=== PATIENT | male | born 1995 ===

== ENCOUNTER 2017-02-12 19:17 | Inpatient (IN) | payer OTHER ==
[~2017-02-12] VITALS: Ht 185.4 cm; Wt 74.0 kg
--- NOTE | 2017-02-12 19:47 | EMERGENCY ROOM VISIT NOTE ---
History Report prepared by Delfina: Joe Turpin Under the Supervision of: Dr. Joe Jason D.O. First contact with patient: 19:09 Stated Complaint: ANKLE FX History of Present Illness The patient is a 21 year old male who presents to the Emergency Room with complaints of a sudden right ankle injury occurring prior to arrival. He currently rates his discomfort as an 8/10 in severity. The patient states that he was playing soccer, and someone stepped on his ankle. He notes that he can feel a deformation. He denies any open fracture or bleeding. Source of History: patient Onset: prior to arrival Position: ankle (right) Symptom Intensity: 8/10 Timing: other (sudden) Review of Systems See HPI for pertinent positives & negatives. A total of 6 systems reviewed and were otherwise negative. Past Medical & Surgical Medical Problems: (1) No chronic problems Family History Patient reports no known family medical history. Social History Marital Status: single Housing Status: lives with roommate Occupation Status: [employer] student Current/Historical Medications No Active Prescriptions or Reported Meds Allergies Coded Allergies: No Known Allergies (Unverified , 02/12/17) Physical Exam Vital Signs Date Time Temp Pulse Resp B/P (MAP) Pulse Ox O2 Delivery O2 Flow Rate FiO2 02/12/17 19:25 37.1 64 18 126/80 100 Room Air 02/12/17 19:23 69 Physical Exam CONSTITUTIONAL/VITAL SIGNS: Reviewed / noted above. GENERAL: Non-toxic in appearance. INTEGUMENTARY: Warm, dry, and [place]. HEAD: Normocephalic. EYES: without scleral icterus or trauma. ENT/OROPHARYNX: clear and moist. LYMPHADENOPATHY/NECK: Is supple without lymphadenopathy or meningismus. RESPIRATORY: Lungs clear and equal. CARDIOVASCULAR: Regular rate and rhythm. GI/ABDOMEN: Soft and nontender. No organomegaly or pulsatile mass. No rebound or guarding. Normal bowel sounds. EXTREMITIES: Tenderness to palpation of the right mid-tibial region. Noted swelling in the area. Distally neurovascularly intact. Warm and well perfused. BACK: No CVA tenderness. NEUROLOGICAL: Intact without focal deficits. PSYCHIATRIC: normal affect. MUSCULOSKELETAL: Normally developed with good muscle tone. Medical Decision & Procedures ER Provider Diagnostic Interpretation: Radiology results as stated below per my review and radiologist interpretation: R TIBIA/FIBULA 2 VIEWS ROUTINE CLINICAL HISTORY: Right tibia and fibula fracture. COMPARISON: None FINDINGS: Note is made of an acute moderately displaced transverse fracture through the mid to distal shaft of the right tibia at the junction of the middle and distal thirds. Fracture is displaced 1.2 cm. There is also an acute mildly displaced comminuted diaphyseal fracture of the adjacent fibula. Alignment of the right knee and ankle is anatomic. Soft tissue swelling is present. IMPRESSION: 1. Acute moderately displaced transverse diaphyseal fracture of the right tibia, as detailed above. 2. Acute mildly displaced comminuted diaphyseal fracture of the right fibula. Electronically signed by: Devyn Monge M.D. 02/12/2017 8:33 PM Dictated Date/Time: 02/12/2017 8:30 PM Medications Administered Medications (Trade) Dose Ordered Sig/Lauri Route Start Time Stop Time Status Last Admin Dose Admin Morphine Sulfate (MoRPHine SULFATE INJ) 4 mg Q1H PRN IV 02/12/17 21:00 02/26/17 20:59 02/12/17 21:08 4 MG Morphine Sulfate (MoRPHine SULFATE INJ) 4 mg NOW STAT IV 02/12/17 21:14 02/12/17 21:16 DC 02/12/17 21:17 4 MG ED Course 1922: Previous medical records were reviewed. The patient was evaluated in room C3. A complete history and physical examination was performed. 2017: I discussed the patient's case with Dr. Shea, Orthopedics, and he is going to splint the patient and evaluate the patient for further management. 2100: Morphine Sulfate 4mg IV 4: Morphine Sulfate 4mg IV Medical Decision Differential diagnosis: Etiologies such as fracture, dislocation, neurovascular compromise, compartment syndrome, soft tissue injury, as well as others were entertained. This is a 21-year-old male who presents to the ED with a chief complaint of right leg pain. The patient was playing [place] and was kicked in the leg while playing. He suffered an injury to the leg. Exam noted above. X-ray reveals a transverse fracture through the mid tib-fib with slight comminution and mild displacement. I spoke with Dr. Shea about this patient. He saw the patient in the ED and will admit the patient. Medication Reconcilliation Current Medication List: was personally reviewed by me Blood Pressure Screening Patient's blood pressure: Normal blood pressure Consults Time Called: 2014 Consulting Physician: Dr. Shea, Orthopedics Returned Call: 2017 I discussed the patient's case with Dr. Shea, Orthopedics, and he is going to splint the patient and evaluate the patient for further management. Impression Primary Impression: Tibia/fibula fracture Scribe Attestation The scribe's documentation has been prepared under my direction and personally reviewed by me in its entirety. I confirm that the note above accurately reflects all work, treatment, procedures, and medical decision making performed by me. Departure Information Dispostion Being Evaluated By Surgeon Prescriptions No Active Prescriptions or Reported Meds Referrals No Doctor, Assigned (PCP)
--- NOTE | 2017-02-12 20:34 | DIAGNOSTIC IMAGING REPORT ---
R TIBIA/FIBULA 2 VIEWS ROUTINE CLINICAL HISTORY: Right tibia and fibula fracture. COMPARISON: None FINDINGS: Note is made of an acute moderately displaced transverse fracture through the mid to distal shaft of the right tibia at the junction of the middle and distal thirds. Fracture is displaced 1.2 cm. There is also an acute mildly displaced comminuted diaphyseal fracture of the adjacent fibula. Alignment of the right knee and ankle is anatomic. Soft tissue swelling is present. IMPRESSION: 1. Acute moderately displaced transverse diaphyseal fracture of the right tibia, as detailed above. 2. Acute mildly displaced comminuted diaphyseal fracture of the right fibula. Electronically signed by: Devyn Monge M.D. 02/12/2017 8:33 PM Dictated Date/Time: 02/12/2017 8:30 PM
[2017-02-12] MEDS ORDERED: MoRPHine SULFATE 4 MG/ML 1 ML CARP\\VIAL IV PRN (21:00)
[2017-02-12] MEDS ORDERED: MoRPHine SULFATE 4 MG/ML 1 ML CARP\\VIAL IV STA (21:14)
[2017-02-12] MEDS ORDERED: METOCLOPRAMIDE HCL INJ 5 MG/ML 2 ML VIAL IV PRN (21:45)
[2017-02-12] MEDS ORDERED: ZOLPIDEM TARTRATE 5 MG TAB PO PRN (21:45)
[2017-02-12] MEDS ORDERED: ALUMINUM/MAGNESIUM SUSP 30 ML UDC PO PRN (21:45)
[2017-02-12] MEDS ORDERED: ONDANSETRON INJ 2 MG/ML 2 ML VIAL IV PRN (21:45)
--- NOTE | 2017-02-12 21:53 | HISTORY & PHYSICAL EXAMINATION ---
DATE OF ADMISSION: 02/12/2017 CHIEF COMPLAINT: Right leg injury. HISTORY OF PRESENT ILLNESS: The patient is a 21-year-old male, electrical engineering sophomore student, who is originally from [facility], who presents for treatment of his leg. He injured this this evening about 6:30 in a soccer game. He apparently had his foot planted and another player came with a slide tackle and hit him right in the swain. He had acute onset of pain and felt a crack. He was brought to the Emergency Room by ambulance. No other injuries. He describes isolated right swain pain. X-rays revealed tib-fib fracture. We are consulted for evaluation. His last drink was in the ER as he had some Gatorade. Last food was about 3-4 hours ago. PAST MEDICAL HISTORY: Noncontributory. PREVIOUS SURGERIES: None. ALLERGIES: None. CURRENT MEDICATIONS: None. SOCIAL HISTORY: A 21-year-old male, he is from [facility]. He does smoke. No alcohol intake. FAMILY HISTORY: Noncontributory. REVIEW OF SYSTEMS: Negative for diabetes, neurologic problems, vascular problems, bleeding disorders. Denies any chest pain, no shortness of breath. No history of DVT or PE. No bleeding problems. No head injury, no neck pain. PHYSICAL EXAMINATION: GENERAL: Reveals a pleasant 21-year-old male. He is lying in bed, looks reasonably comfortable. HEENT: Benign. NECK: Supple. No lymphadenopathy. LUNGS: Clear to auscultation. HEART: Regular rate and rhythm. ABDOMEN: Soft, nontender, nondistended. EXTREMITIES: Grossly neurovascularly intact except as follows: Examination of the right leg reveals slight deformity with anterior angulation. It is in the mid to distal swain area. His skin is intact. There is some moderate swelling. Compartments do not feel tense. He can dorsiflex and plantarflex his toes without severe pain. He is neurologically intact. Good distal pulse. X-RAYS: X-rays of the right tib-fib were reviewed. Show a transverse mid to distal left third tib-fib fracture with some anterior displacement. Fairly minimal comminution. Fairly transverse fracture. ASSESSMENT: A 21-year-old male with right mid to distal tib-fib fracture. It is a transverse fracture, fairly unstable fracture pattern with some displacement. PLAN: We talked about treatment options. Certainly, this is best treated with an IM nail for multiple reasons. We discussed operative and nonoperative treatments and he is strongly desiring surgical management. The risks and benefits of IM nailing of right tib-fib fracture were explained to the patient including but not limited to DVT, PE, , infection, neurological injury, vascular injury, bleeding problem, pain, nonunion, malunion, compartment syndrome, need for further surgery in the future, persistent pain, need for hardware removal, etc. The patient understands and desires to proceed. Informed consent was obtained. We did talk to him about his smoking history and that can certainly affect healing. We recommended he stop smoking. We will admit him to the hospital and do this tomorrow. All questions were answered. A splint was applied to immobilize the leg overnight. Ice was applied to the front of the leg.
[2017-02-12 22:28] VITALS: BP 134/65; PULSE 68; TEMP 37.3; O2SAT 98; Ht 185.4 cm; Wt 74.0 kg
[2017-02-12] MEDS ORDERED: PATIENT'S HEIGHT AND/OR WEIGHT NEEDED SCH (23:00)
[2017-02-12] MEDS: HYDROmorphone INJ 0.5 MG/0.5 ML SYR IV PRN (23:00)
[2017-02-13] VITALS (7 sets, daily range): BP systolic 118–143; BP diastolic 66–79; PULSE 59–80; TEMP 36.7–37.1; O2SAT 2–100
[2017-02-13] MEDS: HYDROmorphone INJ 0.5 MG/0.5 ML SYR IV PRN ×5 (00:21→11:03)
[2017-02-13] MEDS ORDERED: CEFAZOLIN IV 2,000 MG in DEXTROSE 5% 50ML 50 ML IV SCH (06:00)
[2017-02-13] MEDS ORDERED: CEFAZOLIN SOD 2000MG/10 ML IV PUSH IV SCH (06:00)
--- NOTE | 2017-02-13 07:32 | History & Physical Bridge Note ---
H&P Re-Evaluation Bridge Note: I have examined the patient, reviewed the History & Physical and in the interval since the performance of the History & Physical I have noted the following changes of clinical significance: No changes noted
--- NOTE | 2017-02-13 08:13 | PROGRESS NOTE ---
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 He is doing pretty well. As long as he took some pain medicine his pain was controlled last evening. No new complaints. Denies any chest pain or shortness of breath. Isolated right leg pain. OBJECTIVE: VITAL SIGNS: Temperature 37.3. Vital signs stable. GENERAL: Physical examination reveals a pleasant 21-year-old male. He is lying in bed, looks pretty comfortable. Legs propped up. EXTREMITIES: Examination of the right leg reveals the leg to be well aligned in the splint. He can dorsiflex and plantarflex his toes without significant discomfort. He has got passive motion of his toes without much discomfort. His sensory exam is intact to light touch. He has got brisk refill. Good distal pulse. ASSESSMENT: A 21-year-old male with a right displaced mid to distal third tib-fib fracture. He has been n.p.o. after midnight and scheduled for surgery later today. There are no signs of compartment issues. PLAN: We are going to take him to the operating room today and do an IM nail. The risks and benefits of this procedure have been explained to the patient and he understands. We will continue ice and elevation in the meantime. We will keep him overnight and get him therapy tomorrow and hopefully discharge tomorrow. UZIEL
[2017-02-13] MEDS ORDERED: PANTOprazole SOD 40 MG TAB PO SCH (09:00)
[2017-02-13] MEDS ORDERED: DOCUSATE SODIUM 100 MG CAP PO SCH (09:00)
[2017-02-13] MEDS ORDERED: LIDOCAINE HCL 2% 2 ML VIAL (20MG/ML) ONE (11:35)
[2017-02-13] MEDS ORDERED: DEXAMETHASONE SOD INJ 4 MG/ML VIAL ONE (11:35)
[2017-02-13] MEDS ORDERED: MIDAZOLAM HCL 1 MG/ML 2ML VIAL ONE (11:35)
[2017-02-13] MEDS ORDERED: ONDANSETRON INJ 2 MG/ML 2 ML VIAL ONE (11:35)
[2017-02-13] MEDS ORDERED: FENTANYL CITRATE INJ 50 MCG/1 ML 2 ML VIAL ONE (11:35)
[2017-02-13] MEDS ORDERED: PROPOFOL IV EMULSION 10 MG/ML 20 ML VIAL IV ONE ×2 (11:35→12:35)
[2017-02-13] MEDS ORDERED: BACITRACIN 50000 UNIT VIAL ONE ×2 (11:53→12:55)
[2017-02-13] MEDS ORDERED: BUPIVACAINE/EPINEPHRINE 0.5% MPF 1:200,000 30 ML VIAL ONE (14:20)
--- NOTE | 2017-02-13 15:05 | [facility] Post Operative Brief Note ---
Immediate Operative Summary Operative Date Feb 13, 2017. Pre-Operative Diagnosis Right Displaced Mid to Distal Third Tibia-Fibula Fracture Post-Operative Diagnosis Right Displaced Mid to Distal Third Tibia-Fibula Fracture Procedure(s) Performed Intramedullary Nail of Right Tibia Surgeon Dr. Rich Shea Resident Associate Surgeon(s) Mazin Hart PA-C Estimated Blood Loss 200mL Findings Displaced Tibia and Fibula Fracture Fluids (cc crystalloids) 1500 cc Specimens none per surgeon Anesthesia General Complication(s) None Disposition Recovery Room / PACU
[2017-02-13] MEDS ORDERED: METOCLOPRAMIDE HCL INJ 5 MG/ML 2 ML VIAL IV PRN (15:15)
[2017-02-13] MEDS ORDERED: BISACODYL 10 MG SUPP PR PRN (15:15)
[2017-02-13] MEDS ORDERED: ALUMINUM/MAGNESIUM/SIMETH (MAALOX MAX) 30 ML UDC PO PRN (15:15)
[2017-02-13] MEDS ORDERED: ONDANSETRON INJ 2 MG/ML 2 ML VIAL IV PRN ×2 (15:15→16:30)
[2017-02-13] MEDS ORDERED: MAGNESIUM HYDROXIDE SUSP 30 ML UDC PO PRN (15:15)
[2017-02-13] MEDS ORDERED: ZOLPIDEM TARTRATE 5 MG TAB PO PRN (15:15)
[2017-02-13] MEDS ORDERED: DiphenhydrAMINE HCL 50 MG/ML VIAL IV PRN (15:15)
--- NOTE | 2017-02-13 15:17 | DIAGNOSTIC IMAGING REPORT ---
R TIBIA/FIBULA 2 VIEWS ROUTINE CLINICAL HISTORY: RIGHT TIB/FIB NAIL. Internal fixation of a tibial and fibular fracture Fluoroscopy time: 149 seconds. 5 fluoroscopic spot images. FINDINGS: There is an intramedullary jc with proximal and distal interlocking screws bridging the tibial shaft fracture. The hardware appears intact. The alignment is near-anatomic. There is also a slightly displaced mid shaft fracture through the fibula. IMPRESSION: Fluoroscopy provided for internal fixation of midshaft right tibial and fibular fractures. Electronically signed by: Robert Muhammad M.D. 02/13/2017 3:15 PM Dictated Date/Time: 02/13/2017 3:14 PM
[2017-02-13] MEDS ORDERED: HYDROmorphone INJ 1 MG/ML SYR ONE (15:40)
[2017-02-13] MEDS ORDERED: NURSING VERBAL MED ORDER ONE (15:45)
[2017-02-13] MEDS ORDERED: HYDROmorphone INJ 0.5 MG/0.5 ML SYR IV PRN (16:15)
[2017-02-13] MEDS ORDERED: EpHEDrine SULFATE INJ 50 MG/ML AMP IV PRN (16:30)
[2017-02-13] MEDS ORDERED: PHENYLEPHRINE 100MCG/ML 5ML SYR IV PRN (16:30)
[2017-02-13] MEDS ORDERED: HYDROmorphone INJ 2 MG/ML SYR/VIAL IV PRN (16:30)
[2017-02-13] MEDS ORDERED: ATROPINE SULFATE 0.1 MG/ML 5ML SYR IV PRN (16:30)
--- NOTE | 2017-02-13 16:31 | Anesthesiology Progress Note ---
Anesthesia Post Op Note Date & Time Feb 13, 2017 at 16:31 Vital Signs Pain Intensity: 3 Vital Signs Past 12 Hours Date Time Temp Pulse Resp B/P (MAP) Pulse Ox O2 Delivery O2 Flow Rate FiO2 02/13/17 16:15 Nasal Cannula 2.0 02/13/17 16:15 37.1 72 16 143/76 (98) 2 Nasal Cannula 02/13/17 16:00 36.6 59 16 130/82 100 Nasal Cannula 2 02/13/17 15:50 36.6 58 16 133/88 100 Nasal Cannula 2 02/13/17 15:40 58 16 134/81 100 Nasal Cannula 2 02/13/17 15:30 61 16 133/81 100 Oxymask 10 02/13/17 15:20 62 16 120/63 99 Oxymask 10 02/13/17 15:10 36.6 62 16 143/79 99 Oxymask 10 02/13/17 07:57 37.0 71 16 136/75 (95) 99 Room Air 02/13/17 07:00 Room Air Notes Mental Status: alert / awake / arousable, participated in evaluation Pt Amnestic to Procedure: Yes Nausea / Vomiting: adequately controlled Pain: adequately controlled Airway Patency, RR, SpO2: stable & adequate BP & HR: stable & adequate Hydration State: stable & adequate Anesthetic Complications: no major complications apparent
[2017-02-13] MEDS: D5W AND 1/2NSS + 20MEQ KCL 1,000 ML IV SCH (16:39)
[2017-02-13] MEDS: ACETAMINOPHEN 500 MG TAB PO SCH ×2 (16:39→22:21)
[2017-02-13] MEDS: KETOROLAC TROMETHAMINE 30 MG/ML VIAL IV. SCH ×2 (16:39→22:20)
[2017-02-13] MEDS ORDERED: ASPEC325 PO (18:08)
[2017-02-13] MEDS ORDERED: OXYC-57 PO (18:08)
--- NOTE | 2017-02-13 18:10 | Discharge Instructions ---
Discharge Instructions Date of Service Feb 13, 2017. Admission Reason for Admission: Tibia/Fibula Fracture Discharge Discharge Diagnosis / Problem: IM Nailing of Right Tibia/Fibula Fracture Discharge Goals Goal(s): Decrease discomfort, Improve function, Increase independence, Improve disease control, Therapeutic intervention Activity Recommendations Activity Limitations: per Instructions/Follow-up section Weightbearing Status: Right non-weightbearing . Instructions / Follow-Up Instructions / Follow-Up Keep splint and dressing clean, dry, and in place until return to clinic appointmen No Weight on right leg Return clinic appointment 2 weeks from surgery date. Current Hospital Diet Patient's current hospital diet: Regular Diet Discharge Diet Recommended Diet: Regular Diet Procedures Procedures Performed: Intramedullary Nail of Right Tibia Pending Studies Studies pending at discharge: no Medical Emergencies . Who to Call and When: Medical Emergencies: If at any time you feel your situation is an emergency, please call 911 immediately. . Non-Emergent Contact Non-Emergency issues call your: Surgeon . "Provider Documentation" section prepared by Armin Shea. . VTE Core Measure Inpt VTE Proph given/why not?: Other Anticoagulation, T.E.D. Stockings, SCD's
[2017-02-13] MEDS: CEFAZOLIN IV 1,000 MG in SYRINGE 0 ML IV SCH (20:49)
[2017-02-13] MEDS: DOCUSATE SODIUM 100 MG CAP PO SCH (20:49)
[2017-02-13] MEDS: ASPIRIN 325 MG ECTAB PO SCH (20:50)
[2017-02-13] MEDS ORDERED: SENNA 8.6 MG TAB PO SCH (21:00)
[2017-02-14] MEDS: D5W AND 1/2NSS + 20MEQ KCL 1,000 ML IV SCH (02:16)
[2017-02-14 03:40] VITALS: BP 115/67; PULSE 71; TEMP 36.6; O2SAT 99
[2017-02-14] MEDS: CEFAZOLIN IV 1,000 MG in SYRINGE 0 ML IV SCH (04:05)
[2017-02-14] MEDS: KETOROLAC TROMETHAMINE 30 MG/ML VIAL IV. SCH ×2 (04:06→11:00)
[2017-02-14] MEDS: ACETAMINOPHEN 500 MG TAB PO SCH (05:47)
[2017-02-14 07:31] VITALS: BP 114/59; PULSE 63; TEMP 36.6; O2SAT 100
[2017-02-14] MEDS: OXYCODONE HCL IR 5 MG TAB (IMMEDIATE RELEASE) PO PRN ×2 (08:29→12:25)
[2017-02-14] MEDS: ASPIRIN 325 MG ECTAB PO SCH (08:30)
[2017-02-14] MEDS: DOCUSATE SODIUM 100 MG CAP PO SCH (08:30)
[2017-02-14] MEDS ORDERED: MULTIVITAMIN TAB PO SCH (09:00)
[2017-02-14] MEDS ORDERED: PANTOprazole SOD 40 MG TAB PO SCH (09:00)
--- NOTE | 2017-02-14 09:49 | PROGRESS NOTE ---
DATE: 02/14/2017 DATE: 02/14/2017 SUBJECTIVE: A 21-year-old male postop day 1 from IM nailing of right tib-fib fracture. He is doing much better today. Pain is much better controlled. He had a good night. No chest pain or shortness of breath. Not feeling dizzy or lightheaded. OBJECTIVE: VITAL SIGNS: Temperature 36.6. Vital signs stable. PHYSICAL EXAMINATION: GENERAL: Reveals a pleasant 21-year-old male. He is lying in bed, looks pretty comfortable. LUNGS: Clear to auscultation. HEART: Regular rate and rhythm. ABDOMEN: Soft, nontender, nondistended. EXTREMITY EXAMINATION: Grossly neurovascularly intact except as follows: Examination of the right leg reveals the dressing to be in place. There is a little bit of bloody drainage. It is wet from almost through and through due to ice leakage. He can dorsiflex and plantarflex his toes with minimal pain. He is neurologically intact. Some mild to moderate diffuse swelling. Compartments are soft. No pain with passive stretch of his toes. ASSESSMENT: A 21-year-old female postop day 1 from IM nailing of a tib-fib fracture, doing well. His dressing got all wet from leaking ice bag. His pain is much improved. PLAN: 1. DVT prophylaxis including thigh-high TEDs, SCDs, and aspirin twice daily. 2. PT/OT. Nonweightbearing for the next 2 weeks, right leg. 3. IV antibiotics x24 hours. 4. PT, OT. We will get him crutch training. 5. Disposition. Plan to discharge to home later today if he is doing okay pain concepcion.
[2017-02-14 12:00] VITALS: BP 114/59; PULSE 63; TEMP 36.6; O2SAT 100
--- NOTE | 2017-02-15 07:05 | OPERATIVE REPORT ---
DATE OF OPERATION: 02/13/2017 PREOPERATIVE DIAGNOSIS: Right displaced mid to distal third tib-fib fracture. POSTOPERATIVE DIAGNOSIS: Same. PROCEDURE PERFORMED: Right tibial IM nailing. SURGEON: Armin Shea M.D. REGULATORY COORDINATOR: Franklin Hart PA-C. COMPLICATIONS: None. ESTIMATED BLOOD LOSS: 200 mL. FLUID REPLACEMENT: 1500 mL crystalloid fluid replacement. ANESTHESIA: General. SPECIMENS: None. 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 He was playing soccer when he sustained this injury. He was brought to the Emergency Room by ambulance. X-rays revealed a displaced mid to distal third tib-fib fracture. The patient elects to proceed with surgical treatment. It was a fairly unstable fracture with a transverse component. OPERATIVE IMPLANTS: Operative implants consisted of: 1. A Synthes 9 mm x 405 mm titanium tibial nail. 2. A 4.0 locking screws x4. 3. A 0 end cap. OPERATIVE PROCEDURE: The patient taken to the operating room, identified and placed on the operating table in supine position. All contact areas were appropriately padded. IV antibiotics were provided by anesthesia team. A general anesthetic was implemented by anesthesia team. A right thigh tourniquet was then placed, but not used throughout the case. The right lower extremity splint was then removed. I then did shave the areas where we are gong to make incision with the clippers. I then scrubbed the leg was Hibiclens, prepped it with ChloraPrep and draped the leg in the typical sterile fashion. The radiolucent triangle was placed beneath the leg. Incision was made over the anteromedial aspect of the patellar tendon extending from the inferior pole of the patella to the tibial tubercle. Sharp dissection was carried through the subcutaneous tissue down to the level of the extensor mechanism. A medial parapatellar tendon incision was made. I did remove some of the fat pad. X-ray was then brought in. I placed a guidewire in the central aspect of the tibia on the AP film and then I just over the anterior apex of the anterior tibial crest on the lateral film. I advanced this down the IM canal. I over reamed this with the cannulated reamer for a distance of about 7 cm. I then removed this. We then placed the ball tipped guidewire down the tibial canal. We did have to make some adjustments as it did bounce off the back and I had to bend the wire in order to get it to go down the tibial canal. We eventually placed it down the canal and fed it across the fracture site into the distal segment. I centered this in the distal segment. I then measured for nail length and 405 mm nail was selected. We then began reaming. Reaming of the tibia was begun beginning with a size 6 and we reamed up to a 10. We started getting pretty good chatter at 9 and although I preferred to place a slightly larger nail, I did not want to create compartment syndrome or undue reaming of his bone. Therefore, we stopped the [address] a 9 mm nail. The 9 mm x 405 mm tibial nail was then placed over the guidewire and tapped into position. We did countersink this slightly in the proximal tibia to make sure it was not prominent. We got excellent fixation. I advanced this pretty far distally to make sure we had optimal fixation distally. Once position was verified, the proximal aiming arm was placed. The proximal tibial inter locking screws were placed after placing stab incisions and placed them through the guide. We placed 1 dynamic screw and 1 static screw. Length was verified. I then removed the aiming arm. Attention was then drawn toward distal fixation. Using the perfect [place] technique distally, I placed 2 distal interlocking screws from medial to lateral position under fluoroscopic guidance. We got excellent purchase. Once this was complete, some final x-rays were obtained. I did place a 0 end cap through the proximal aspect of the nail. Attention was then drawn toward closing. All wounds were irrigated with copious amounts of pulsatile lavage solution. Hemostasis was assured with use of electrocautery. I repaired the medial parapatellar incision with 0 Vicryl suture in a [id number] fashion. The subcutaneous tissues of all wounds were closed with 2-0 Dexon suture in a buried interrupted fashion. Skin was closed with 3-0 nylon suture in a horizontal mattress fashion. The leg was then cleaned and dried and a sterile dressing of Xeroform, 4 x 4's, sterile cast padding and a posterior splint was applied. The patient then brought out of general anesthesia and transferred to the recovery room in stable condition. The patient tolerated the procedure with no complications. All needle and sponge counts were correct at the end of the operation. I attest to the content of the Intraoperative Record and any orders documented therein. Any exception s are noted below.
== END 2017-02-14 12:50 | disposition home or self-care (01) | DRG 494 ==
LOC: C.EDC 19:21 → C.MSW 21:38 → EDBEDREQ 21:41 → ENRESERV 21:49
PROVIDERS: ADMIT Orthopaedic Surgery Sports Medicine; ATTEND Orthopaedic Surgery Sports Medicine
PROC: 0QSG06Z Reposition Right Tibia with Intramedullary Internal Fixation Device, Open Approach (ICD-10-PCS; principal; 2017-02-13 09:00)
DX: S82.221A Displaced transverse fracture of shaft of right tibia, initial encounter for closed fracture (principal); S82.421A Displaced transverse fracture of shaft of right fibula, initial encounter for closed fracture; W51.XXXA Accidental striking against or bumped into by another person, initial encounter; Y93.66 Activity, soccer; F17.210 Nicotine dependence, cigarettes, uncomplicated